=== PATIENT | male | born 1990 | race Caucasian/White ===

== ENCOUNTER 2023-10-31 13:15 | Emergency (ER) | payer OTHER ==
--- NOTE | 2023-10-31 13:39 | ED Physician Documentation ---
PD HPI ABD PAIN - Stated complaint Stated Complaint: ABD PX - Chief complaint Chief Complaint: Abd Pain - Additional information Additional information: 32-year-old male with no pertinent past medical history presents emergency department for lower abdominal pain. Patient originally told triage nurse that it was his left lower quadrant but for myself he says it is actually right in the bladder suprapubic middle lower abdomen region. Patient denies any fevers or chills he says that the pain comes and goes in waves and he says that his urine stream has significantly diminished over the last couple days. No CVA tenderness. No fevers at home, mild chills. Never experienced anything like this before. No emesis, mild nausea. PD PAST MEDICAL HISTORY - Past Medical History Past Medical History: No - Past Surgical History Past Surgical History: No - Present Medications Home Medications: Ambulatory Orders Medication Instructions Recorded Confirmed Ciprofloxacin [Cipro] 500 mg PO Q12H 14 Days #54 tablet 10/31/23 metroNIDAZOLE [Flagyl] 500 mg PO TID 14 Days #41 tablet 10/31/23 oxyCODONE [Roxicodone] 5 mg PO Q4-6H PRN #15 tablet 10/31/23 - Allergies Allergies/Adverse Reactions: Allergies Allergy/AdvReac Type Severity Reaction Status Date / Time Sulfa (Sulfonamide Allergy Hives Verified 10/31/23 13:26 Antibiotics) - Social History Does the pt smoke?: Yes Smoking Status: Current every day smoker Does the pt drink ETOH?: No PD ED PE NORMAL - Vitals Vital signs reviewed: Yes - General General: Alert and oriented X 3, No acute distress, Well developed/nourished - HEENT HEENT: Atraumatic - Cardiac Cardiac: RRR, No murmur, No gallop, Strong equal pulses - Respiratory Respiratory: No respiratory distress, Clear bilaterally - Abdomen Abdomen: Normal bowel sounds, Soft, Non distended, No organomegaly, Other (suprapubic tenderness) - Back Back: No CVA TTP - Derm Derm: Normal color, Warm and dry, No rash - Neuro Neuro: Alert and oriented X 3 - Psych Psych: Normal mood, Normal affect Results - Vitals Vitals: Vital Signs - 24 hr 10/31/23 10/31/23 10/31/23 13:18 13:25 13:42 Temperature 36 C L 36.5 C Heart Rate 93 93 88 Respiratory 16 16 18 Rate Blood Pressure 137/87 H 137/87 H 158/93 H O2 Saturation 98 98 97 10/31/23 10/31/23 15:25 17:00 Temperature 36.5 C Heart Rate 77 82 Respiratory 16 16 Rate Blood Pressure 120/71 132/79 H O2 Saturation 96 96 Oxygen O2 Source Room air - Labs Labs: Laboratory Tests 10/31/23 10/31/23 10/31/23 13:06 15:21 15:21 WBC 14.9 H RBC 5.01 Hgb 15.4 Hct 44.5 MCV 88.8 MCH 30.7 MCHC 34.6 RDW 11.8 L Plt Count 229 MPV 9.3 Neut # (Auto) 11.4 H Lymph # (Auto) 2.0 [place] # (Auto) 1.2 H Eos # (Auto) 0.2 Baso # (Auto) 0.0 Absolute Nucleated RBC 0.00 Nucleated RBC % 0.0 Sodium 135 Potassium 4.4 Chloride 102 Carbon Dioxide 28 Anion Gap 5.0 L BUN 19 Creatinine 1.1 Estimated GFR (MDRD) 78 L Glucose 94 Calcium 9.7 Magnesium 2.1 Total Bilirubin 0.7 AST 18 ALT 49 Alkaline Phosphatase 69 Total Protein 7.2 Albumin 4.1 Globulin 3.1 Albumin/Globulin Ratio 1.3 Lipase < 10 L Urine Color YELLOW Urine Clarity CLEAR Urine pH 6.5 Ur Specific [place] 1.020 Urine Protein NEGATIVE Urine Glucose (UA) NEGATIVE Urine Ketones NEGATIVE Urine Occult Blood NEGATIVE Urine Nitrite NEGATIVE Urine Bilirubin NEGATIVE Urine Urobilinogen 0.2 (NORMAL) Ur Leukocyte Esterase NEGATIVE Ur Microscopic Review NOT INDICATED Urine Culture Comments NOT INDICATED - Rads (name of study) CT abd pelvis w/con Relevant Findings:: Final report received, EMP independent interpretation of test (sigmoid wall abscess 1.8 cm) PD Medical Decision Making - ED course ED course: 32-year-old male presents emergency department for suprapubic pain and tenderness. Differentials include but are not limited to UTI, renal calculi, bladder mass, urinary retention. CT abdomen was complete for further evaluation with contrast for further evaluation, consider doing CT KUB but no hematuria. CT revealed sigmoid colon wall thickening with most likely a sigmoid wall abscess measuring about 1.8 cm. Labs are complete he does have leukocytosis, 14.9 elevated neutrophils at 11.4 and no significant electrolyte abnormalities and unremarkable urinalysis This is most likely due to diverticulitis. Patient also reports he has a family history of diverticulitis. I spoke with on-call surgeon Dr. Mckeon discussed patient findings with her and she suggested starting patient on oral antibiotics and doing a trial outpatient first before admission. Given that patient has been afebrile and hemodynamically stable and patient overall appears well I feel comfortable with this plan at this point in time. Patient was started on Flagyl and ciprofloxacin here in the emergency department and a prescription of Flagyl, ciprofloxacin, narcotics was sent to his preferred pharmacy. I am prescribing a short course of short-acting opioid pain medication for this patient. I have reviewed the patients BRONC BUSTER and no concerning findings were noted. I have discussed that the opioids are for short term therapy only, and will not be refilled from the ED. Patient was told to follow-up with surgery clinic outpatient in 1 week he was given very strict return precautions him and his understand the strict return precautions and patient feels safe to discharge at this point in time. Departure - Departure Disposition: 01 Home, Self Care Clinical Impression: Diverticulitis, Colonic diverticular abscess Instructions: ED Diverticulitis Follow-Up: [facility] [Provider Group] Prescriptions: Ciprofloxacin [Cipro] 500 mg PO Q12H 14 Days #54 tablet metroNIDAZOLE [Flagyl] 500 mg PO TID 14 Days #41 tablet oxyCODONE [Roxicodone] 5 mg PO Q4-6H PRN #15 tablet PRN Reason: Pain >8 Comments: Thank you for trusting us with your care we have found that you have a small abscess on your sigmoid colon. This is most likely due to diverticulitis. We have started you on an antibiotic called Flagyl and ciprofloxacin. I have sent both of these antibiotics as well [facility] [place]. See the attached paperwork for diverticulitis diet suggestions I would also try to stick to a clear liquid diet for the next 24 to 48 hours to help with your recovery. As we discussed please have a very low threshold to come back to the emergency department if after 48 hours of antibiotics if no improvement. You will need to follow-up with our surgeons in 1 week in the clinic. Their phone number is [phone]. As we discussed please have a very low threshold to come back to the emergency department if you are having any worsening symptoms in any way shape or form. I am prescribing a short course of narcotic pain medication for you. These are potentially dangerous and addictive medications that should be used carefully. These medications may constipate you. Take an [id number] stool softener (docusate) twice daily with plenty of water while taking these medications. If you go 24 hours without a bowel movement, take [id number] miralax, per package instructions. Do not drink or drive while taking these medications. If you received narcotic or sedating medications while in the emergency department, do not drive for 24 hours. Store this medication in a safe, secure place and out of reach of children. It is a violation of federal law to give or sell this medication to another person or to use in a manner other than prescribed. The ED will not refill narcotic prescriptions, including prescriptions lost or stolen. To dispose of unwanted medications: 1. [facility] at [address] in [place] has a medication drop box. They accept prescription medications (in pill form) Sunday through Sunday 9:00 a.m. to 5:00 p.m. 2. The [facility] [employer] accepts prescription medications (in pill form only) for disposal year round. Call for more information. 3. Contact the [facility] for the next [employer] sponsored prescription drug collection event. , [phone], or [phone]; Note that many narcotic pain relievers also contain Tylenol/acetaminophen. Please ensure that your total dose of acetaminophen from all sources does not exceed 3 g (3000 mg) per day. TECHNIQUE: After the administration of intravenous contrast, a CT scan of the abdomen and pelvis was performed. Images were recorded and evaluated at appropriate window settings. Reformats: coronal and sagittal. For radiation dose reduction, the following was used: automated exposure control, adjustment of mA and/or kV according to patient size. COMPARISON: None. FINDINGS: Image quality: Diagnostic. Lower chest: Unremarkable. Liver: No solid mass. Gallbladder and biliary tree: No radiopaque stones or wall thickening. No biliary dilation. Spleen: No splenomegaly. Pancreas: No pancreatic ductal dilation. Adrenals: No adrenal nodule. Kidneys and ureters: No hydronephrosis. No renal cystic lesion which requires follow up. No solid mass. Stomach, bowel and peritoneum: There is significant inflammatory change involving the sigmoid with a early abdominal wall/subjacent abscess developing which measures approximately 1.8 cm in diameter. It may potentially be within the wall of the sigmoid. There is impressive edematous change in this portion of the sigmoid. There is inflammatory change in the adjacent fat. Lymph nodes: No central or retroperitoneal adenopathy. Vessels: No infrarenal aortic aneurysm. PELVIS Reproductive organs: Unremarkable. Bladder: No abnormal wall thickening, accounting for underdistention. Pelvic lymph nodes: No pelvic adenopathy by size criteria. Bones: No aggressive osseous abnormality. Other: Small fat-containing left inguinal hernia.. IMPRESSION: Abnormal segment of sigmoid colon with significant wall thickening and edematous change and either a sigmoid wall abscess or developing abscess in the immediate subjacent fat measuring 1.8 cm. This can potentially represent acute diverticulitis in a 32-year-old. Additionally, consider inflammatory versus infectious colitis. Comment: Consider direct visualization with colonoscopy after acute symptoms resolve to exclude inflammatory bowel disease. Forms: PCP List Discharge Date/Time: 10/31/23 17:49
[2023-10-31 13:42] LABS: BILIRUBIN,URINE NEGATIVE (NEGATIVE); GLUCOSE, URINE (UA) NEGATIVE (NEGATIVE); KETONES,URINE (UA) NEGATIVE (NEGATIVE); LEUKOCYTE ESTERASE, URINE NEGATIVE (NEGATIVE); NITRITE,URINE NEGATIVE (NEGATIVE); OCCULT BLOOD,URINE NEGATIVE (NEGATIVE); PH,URINE 6.5 PH (5.0-7.5); PROTEIN,URINE NEGATIVE (NEGATIVE); UROBILINOGEN,URINE 0.2 (NORMAL) E.U./dL (NORMAL)
[2023-10-31 13:52] LABS: CLARITY,URINE CLEAR (CLEAR)
[2023-10-31] MEDS: HYDROmorphone 0.5 MG/0.5 ML SYRINGE IVP STA ×2 (13:58→17:26)
[2023-10-31] MEDS: KETOROLAC 30 MG/ML VIAL IVP STA (13:59)
[2023-10-31 15:28] LABS: BASOPHILS % (AUTO) 0.2 %; EOSINOPHILS # (AUTO) 0.2 10^3/uL (0.0-0.7); EOSINOPHILS % (AUTO) 1.1 %; HCT - HEMATOCRIT 44.5 % (42.0-52.0); HGB - HEMOGLOBIN 15.4 g/dL (14.0-18.0); LYMPHOCYTES % (AUTO) 13.6 %; MEAN CORPUSCULAR HEMOGLOBIN 30.7 pg (27.0-31.0); MEAN CORPUSCULAR HGB CONC 34.6 g/dL (32.0-36.0); MEAN CORPUSCULAR VOLUME 88.8 fL (80.0-94.0); MEAN PLATELET VOLUME 9.3 fL (7.4-11.4); MONOCYTES # (AUTO) 1.2 10^3/uL (0.0-1.0); MONOCYTES % (AUTO) 7.9 %; NEUTROPHILS # (AUTO) 11.4 10^3/uL (1.5-6.6); NEUTROPHILS % (AUTO) 76.9 %; PLT - PLATELET COUNT 229 10^3/uL (130-450); RED BLOOD COUNT 5.01 10^6/uL (4.70-6.10); RED CELL DISTRIBUTION WIDTH 11.8 % (12.0-15.0); WHITE BLOOD COUNT 14.9 x10^3/uL (4.8-10.8)
[2023-10-31 15:39] VITALS: O2SAT 96
[2023-10-31 15:50] LABS: ALBUMIN 4.1 g/dL (3.2-5.5); ALBUMIN/GLOBULIN RATIO 1.3 (1.0-2.2); ALKALINE PHOSPHATASE 69 IU/L (42-121); ALT ALANINE AMINOTRANSFERASE 49 IU/L (10-60); AST ASPARTATE AMINOTRANSFERASE 18 IU/L (10-42); BILIRUBIN,TOTAL 0.7 mg/dL (0.2-1.0); BUN - BLOOD UREA NITROGEN 19 mg/dL (6-20); CALCIUM 9.7 mg/dL (8.5-10.3); CARBON DIOXIDE - CO2 28 mmol/L (21-32); CHLORIDE 102 mmol/L (101-111); CREATININE 1.1 mg/dL (0.6-1.3); GFR - MDRD 78 (>89); GLUCOSE 94 mg/dL (74-104); MAGNESIUM 2.1 mg/dL (1.7-2.3); POTASSIUM 4.4 mmol/L (3.5-4.5); SODIUM 135 mmol/L (135-145); TOTAL PROTEIN 7.2 g/dL (6.4-8.9)
[2023-10-31 15:52] LABS: LIPASE < 10 U/L (11-82)
[2023-10-31] MEDS ORDERED: iohexoL-300 100 ML VIAL ONE (15:54)
--- NOTE | 2023-10-31 16:37 | CT Report ---
PROCEDURE: Abdomen/Pelvis W INDICATIONS: RUQ pain CONTRAST: See chart 100 ml TECHNIQUE: After the administration of intravenous contrast, a CT scan of the abdomen and pelvis was performed. Images were recorded and evaluated at appropriate window settings. Reformats: coronal and sagittal. F or radiation dose reduction, the following was used: automated exposure control, adjustment of mA and /or kV according to patient size. COMPARISON: None. FINDINGS: Image quality: Diagnostic. Lower chest: Unremarkable. Liver: No solid mass. Gallbladder and biliary tree: No radiopaque stones or wall thickening. No biliary dilation. Spleen: No splenomegaly. Pancreas: No pancreatic ductal dilation. Adrenals: No adrenal nodule. Kidneys and ureters: No hydronephrosis. No renal cystic lesion which requires follow up. No solid mas s. Stomach, bowel and peritoneum: There is significant inflammatory change involving the sigmoid with a early abdominal wall/subjacent abscess developing which measures approximately 1.8 cm in diameter. It may potentially be within the wall of the sigmoid. There is impressive edematous change in this port ion of the sigmoid. There is inflammatory change in the adjacent fat. Lymph nodes: No central or retroperitoneal adenopathy. Vessels: No infrarenal aortic aneurysm. PELVIS Reproductive organs: Unremarkable. Bladder: No abnormal wall thickening, accounting for underdistention. Pelvic lymph nodes: No pelvic adenopathy by size criteria. Bones: No aggressive osseous abnormality. Other: Small fat-containing left inguinal hernia.. IMPRESSION: Abnormal segment of sigmoid colon with significant wall thickening and edematous change and either a sigmoid wall abscess or developing abscess in the immediate subjacent fat measuring 1.8 cm. This can potentially represent acute diverticulitis in a 32-year-old. Additionally, consider inflamma tory versus infectious colitis. Comment: Consider direct visualization with colonoscopy after acute symptoms resolve to exclude infla mmatory bowel disease. Reviewed by: Neto Boggs MD on 10/31/2023 4:36 PM PDT Approved by: Neto Boggs MD on 10/31/2023 4:36 PM PDT Station ID: [id number]
[2023-10-31] MEDS: SODIUM CHLORIDE 0.9% 1,000 ML IV ONE (16:52)
[2023-10-31 17:06] VITALS: BP 132/79
[2023-10-31] MEDS: CIPROFLOXACIN 250 MG TABLET PO STA (17:26)
[2023-10-31] MEDS: metroNIDAZOLE 250 MG TABLET PO STA (17:26)
[2023-10-31] MEDS: oxyCODONE 5 MG TABLET PO STA (17:26)
[2023-10-31] MEDS: iohexoL-300 100 ML VIAL IVP ONE (17:37)
== END 2023-10-31 17:49 | disposition home or self-care (01) ==
LOC: ED 13:15
DX: K57.80 Diverticulitis of intestine, part unspecified, with perforation and abscess without bleeding (principal); F17.200 Nicotine dependence, unspecified, uncomplicated; Z88.2 Allergy status to sulfonamides; Z83.79 Family history of other diseases of the digestive system
CPT/HCPCS: 36415; 74177; 80053; 81003; 83690; 83735; 85025; 96374; 96375; 96376; 99284; A9270; J1170; Q9967; 81001; 87086

== ENCOUNTER 2023-11-01 06:57 | Observation (INO) | payer OTHER ==
--- NOTE | 2023-11-01 07:22 | ED Physician Documentation ---
History of Present Illness - Stated complaint Stated Complaint: ABD PX - Chief complaint Chief Complaint: Abd Pain - History obtained from History obtained from: Patient - Additonal information Additional information: The patient comes to the emergency department chief complaint of worsening low abdominal pain after being seen in the emergency department yesterday for the same. He states the pain overall is been going on for about 3 days including today, but that he finally went to the emergency department yesterday because she is getting worse and worse. He had a full workup including labs, which showed a white blood cell count of roughly 15, and a CT scan of the abdomen pelvis which showed inflammation and an early or developing abscess in his low abdomen. Surgery was consulted and felt that given the findings, the patient could have a trial of oral antibiotics. The patient was given Cipro and Flagyl prescriptions as well as IV doses of antibiotics in the emergency department yesterday. He states he has not taken his oral antibiotics yet, as he was not discharged from the emergency department until later yesterday. He states that the Dilaudid he was given in the ED kept him comfortable until about 2200 at which time he was in enough pain to feel the need to take an oxycodone. He states this was effective for about 3 hours but then the pain began to come back. He states that he waited another hour and at the 4-hour baltazar, he took another oxycodone. He states that this time, it did not do anything and that he is felt like the pain was getting worse since then. He denies nausea. No measured fevers. No chills. No new symptoms otherwise. No history of abdominal surgeries. He is otherwise healthy except for smoking. He states that the pain reaches across both sides of his lower abdomen. No other complaints at this time. PD PAST MEDICAL HISTORY - Past Medical History Past Medical History: No - Past Surgical History Past Surgical History: No - Present Medications Home Medications: Ambulatory Orders Medication Instructions Recorded Confirmed Ciprofloxacin [Cipro] 500 mg PO Q12H 14 Days #54 tablet 10/31/23 11/01/23 metroNIDAZOLE [Flagyl] 500 mg PO TID 14 Days #41 tablet 10/31/23 11/01/23 oxyCODONE [Roxicodone] 5 mg PO Q4-6H PRN #15 tablet 10/31/23 11/01/23 - Allergies Allergies/Adverse Reactions: Allergies Allergy/AdvReac Type Severity Reaction Status Date / Time Sulfa (Sulfonamide Allergy Hives Verified 11/01/23 07:00 Antibiotics) - Social History Does the pt smoke?: Yes Smoking Status: Current every day smoker Does the pt drink ETOH?: No Does the pt have substance abuse?: No PD ED PE NORMAL - Vitals Vital signs reviewed: Yes - General General: Alert and oriented X 3, No acute distress, Well developed/nourished, Other (The patient appears moderately uncomfortable, holding onto his low abdomen, but otherwise in no apparent distress.) - HEENT HEENT: Atraumatic, PERRL, EOMI, Moist mucous membranes - Neck Neck: Supple, no meningeal sign - Cardiac Cardiac: RRR, No murmur - Respiratory Respiratory: No respiratory distress, Clear bilaterally - Abdomen Abdomen: Soft, Non distended, Other (Marked tenderness across bilateral lower quadrants and suprapubic region. No rebound or guarding. 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, Normal speech, Other (Grossly intact) - Psych Psych: Normal mood, Normal affect Results - Vitals Vitals: Vital Signs - 24 hr 11/01/23 11/01/23 07:00 08:00 Temperature 36.2 C L Heart Rate 87 82 Respiratory 16 16 Rate Blood Pressure 151/86 H 138/85 H O2 Saturation 96 95 Oxygen O2 Source Room air - Labs Labs: Laboratory Tests 11/01/23 11/01/23 07:21 07:21 WBC 15.0 H RBC 5.13 Hgb 15.7 Hct 45.5 MCV 88.7 MCH 30.6 MCHC 34.5 RDW 11.8 L Plt Count 233 MPV 9.4 Neut # (Auto) 11.5 H Lymph # (Auto) 1.9 [place] # (Auto) 1.4 H Eos # (Auto) 0.1 Baso # (Auto) 0.0 Absolute Nucleated RBC 0.00 Nucleated RBC % 0.0 Sodium 134 L Potassium 4.1 Chloride 102 Carbon Dioxide 27 Anion Gap 5.0 L BUN 12 Creatinine 1.1 Estimated GFR (MDRD) 78 L Glucose 97 Calcium 9.6 Total Bilirubin 1.3 H AST 16 ALT 41 Alkaline Phosphatase 66 Total Protein 7.4 Albumin 4.2 Globulin 3.2 Albumin/Globulin Ratio 1.3 Lipase < 10 L - Rads (name of study) CT abd pelvis Relevant Findings:: Final report received, See rad report (Diverticulitis with abscess, somewhat worsened.) PD Medical Decision Making - ED course Complexity details: reviewed old records, reviewed results, re-evaluated patient, considered differential, d/w patient ED course: I reviewed the patient's records from yesterday and given his worsening pain and his findings on exam, I felt he should have repeat workup to determine whether things were getting worse. Patient was treated symptomatically with IV fluids, Toradol, and Dilaudid, and as he had not yet taken his antibiotics this morning, he was given doses of both his antibiotics here in the emergency department. The CBC showed a roughly unchanged WBC count. CT abd/pelvis showed a somewhat worsened diverticulitis and abscess. I discussed the case with Dr. Nicole, who was delinquency prevention officer for surgery, and he did come and see the patient in the ED and agreed to admit him to his service. Departure - Departure Disposition: ED Place in Observation Clinical Impression: Diverticulitis, Colonic diverticular abscess Condition: Serious Discharge Date/Time: 11/01/23 11:15
[2023-11-01] MEDS ORDERED: iohexoL-300 100 ML VIAL ONE (07:25)
[2023-11-01] MEDS: SODIUM CHLORIDE 0.9% 1,000 ML IV STA (07:26)
[2023-11-01] MEDS: HYDROmorphone 1 MG/ML CARPUJECT IVP STA (07:32)
[2023-11-01] MEDS: KETOROLAC 30 MG/ML VIAL IVP STA (07:32)
[2023-11-01] MEDS: CIPROFLOXACIN 400 MG/200 ML 400 MG/200 ML BAG IV STA (07:33)
[2023-11-01 07:41] LABS: BASOPHILS % (AUTO) 0.2 %; EOSINOPHILS # (AUTO) 0.1 10^3/uL (0.0-0.7); EOSINOPHILS % (AUTO) 0.5 %; HCT - HEMATOCRIT 45.5 % (42.0-52.0); HGB - HEMOGLOBIN 15.7 g/dL (14.0-18.0); LYMPHOCYTES # (AUTO) 1.9 10^3/uL (1.5-3.5); LYMPHOCYTES % (AUTO) 12.6 %; MEAN CORPUSCULAR HEMOGLOBIN 30.6 pg (27.0-31.0); MEAN CORPUSCULAR HGB CONC 34.5 g/dL (32.0-36.0); MEAN CORPUSCULAR VOLUME 88.7 fL (80.0-94.0); MEAN PLATELET VOLUME 9.4 fL (7.4-11.4); MONOCYTES # (AUTO) 1.4 10^3/uL (0.0-1.0); MONOCYTES % (AUTO) 9.6 %; NEUTROPHILS # (AUTO) 11.5 10^3/uL (1.5-6.6); NEUTROPHILS % (AUTO) 76.8 %; PLT - PLATELET COUNT 233 10^3/uL (130-450); RED BLOOD COUNT 5.13 10^6/uL (4.70-6.10); RED CELL DISTRIBUTION WIDTH 11.8 % (12.0-15.0)
[2023-11-01] MEDS: metroNIDAZOLE 500 MG/100 ML 500 MG/100 ML BAG IV ONE (07:44)
[2023-11-01 07:50] LABS: ALBUMIN 4.2 g/dL (3.2-5.5); ALBUMIN/GLOBULIN RATIO 1.3 (1.0-2.2); ALKALINE PHOSPHATASE 66 IU/L (42-121); ALT ALANINE AMINOTRANSFERASE 41 IU/L (10-60); AST ASPARTATE AMINOTRANSFERASE 16 IU/L (10-42); BILIRUBIN,TOTAL 1.3 mg/dL (0.2-1.0); BUN - BLOOD UREA NITROGEN 12 mg/dL (6-20); CALCIUM 9.6 mg/dL (8.5-10.3); CARBON DIOXIDE - CO2 27 mmol/L (21-32); CHLORIDE 102 mmol/L (101-111); CREATININE 1.1 mg/dL (0.6-1.3); GFR - MDRD 78 (>89); GLUCOSE 97 mg/dL (74-104); POTASSIUM 4.1 mmol/L (3.5-4.5); SODIUM 134 mmol/L (135-145); TOTAL PROTEIN 7.4 g/dL (6.4-8.9)
[2023-11-01 07:51] LABS: LIPASE < 10 U/L (11-82)
[2023-11-01] MEDS: iohexoL-300 100 ML VIAL IVP ONE (07:57)
--- NOTE | 2023-11-01 08:05 | CT Report ---
PROCEDURE: Abdomen/Pelvis W INDICATIONS: diverticulitis, abscess, worse pain/tend today CONTRAST: iohex 300 100ml TECHNIQUE: After the administration of intravenous contrast, a CT scan of the abdomen and pelvis was performed. Images were recorded and evaluated at appropriate window settings. Reformats: coronal and sagittal. F or radiation dose reduction, the following was used: automated exposure control, adjustment of mA and /or kV according to patient size. COMPARISON: 10/31/2023. FINDINGS: Image quality: Diagnostic. Lower chest: Unremarkable. Liver: No solid mass. Gallbladder and biliary tree: No radiopaque stones or wall thickening. No biliary dilation. Spleen: No splenomegaly. Pancreas: No pancreatic ductal dilation. Adrenals: No adrenal nodule. Kidneys and ureters: No hydronephrosis. No renal cystic lesion which requires follow up. No solid mas s. Stomach, bowel and peritoneum: Again noted is an abnormal segment of sigmoid colon with significant w all thickening and edematous change. The associated wall abscess has increased in size. On previous i mage 131 it measured 1.6 x 1.8 cm. On current image 136/2 it measures 2.2 x 2.8 cm. It is currently n ot a drainable abscess. No free air. No free fluid. Inflammatory change in the fat surrounding the ab normal segment of sigmoid. Lymph nodes: No central or retroperitoneal adenopathy. Vessels: No infrarenal aortic aneurysm. PELVIS Reproductive organs: Unremarkable. Bladder: No abnormal wall thickening, accounting for underdistention. Pelvic lymph nodes: No pelvic adenopathy by size criteria. Bones: No aggressive osseous abnormality. Other: No significant ventral or inguinal hernia. IMPRESSION: As present yesterday, there is an abnormal segment of sigmoid colon with significant wall thickening and edematous change. There is a wall abscess associated with this abnormal segment which has increas ed in size. It is not drainable. There is no free air noted. Consider acute diverticulitis versus inflammatory versus infectious colitis. Reviewed by: Neto Boggs MD on 11/01/2023 8:04 AM PDT Approved by: Neto Boggs MD on 11/01/2023 8:04 AM PDT Station ID: [id number]
[2023-11-01] MEDS ORDERED: NICOTINE 14 MG PATCH TOP PRN (10:00)
[2023-11-01] MEDS ORDERED: ONDANSETRON 4 MG/2 ML VIAL IVP PRN (10:00)
--- NOTE | 2023-11-01 10:21 | HISTORY & PHYSICAL EXAMINATION ---
Chief Complaint - Chief Complaint Chief Complaint: Lower abdominal pain History of Present Illness - Admitted From Admitted From:: ED - History Obtained From History obtained from: Patient Exam Limitations: None - History of Present Illness HPI Comment/Other: Lili is a 32 year old male who developed lower abdominal sharp, non-radiating pain on Sunday night. It was sudden in onset. He was constipated prior to this and remains constipated. He denies fevers, chills, sweats. He was seen in the ED last night and found to have diverticulitis of the sigmoid colon with pericolonic swelling and a small abscess adjacent to the sigmoid wall. he preferred out-patient management and was discharged from the ED late last evening. He was given a single dose of IV antibiotics in the ED but did not take his oral medications this morning. He awakened with worsening abdominal pain and returned to the ED where a second CT scan identified similar findings as yesterday's exam with perhaps some increase in the size of the zhou-colonic abscess. Lili admits to constipation but has never had this type of discomfort in the past. He tells me his grandmother had surgery for perforated diverticulitis. 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 he smokes a pack of cigarettes every two days. He has not used alcohol recently. Meds/Allgy - Home Medications Home Medications: Ambulatory Orders Medication Instructions Recorded Confirmed Ciprofloxacin [Cipro] 500 mg PO Q12H 14 Days #54 tablet 10/31/23 11/01/23 metroNIDAZOLE [Flagyl] 500 mg PO TID 14 Days #41 tablet 10/31/23 11/01/23 oxyCODONE [Roxicodone] 5 mg PO Q4-6H PRN #15 tablet 10/31/23 11/01/23 - Allergies Allergies/Adverse Reactions: Allergies Allergy/AdvReac Type Severity Reaction Status Date / Time Sulfa (Sulfonamide Allergy Hives Verified 11/01/23 07:00 Antibiotics) Review of Systems - Gastrointestinal Gastrointestinal: reports: Abdominal pain, Constipation Exam - Vital Signs Vital Signs: Vital Signs x48h Temp Pulse Resp BP Pulse Ox 11/01/23 07:00 97.2 F L 87 16 151/86 H 96 - Physical Exam General Appearance: positive: No acute distress, Alert Eyes Bilateral: positive: Normal inspection, PERRL, EOMI ENT: positive: ENT inspection nml, Pharynx nml, No signs of dehydration Neck: positive: Nml inspection, Thyroid nml, No JVD, Trachea midline Respiratory: positive: Chest non-tender, No respiratory distress, Breath sounds nml Cardiovascular: positive: Regular rate & rhythm, No murmur Peripheral Pulses: positive: 2+ Abdomen: positive: Nml bowel sounds, No distention, Tenderness (Tenderness in the hypogastric region without peritoneal irritation) Skin: positive: Color nml, No rash, Warm Extremities: positive: Non-tender, Full ROM, Nml appearance Neurologic/Psychiatric: positive: Oriented x3 Conclusion/Plan - Lab Results Fish Bones: 11/01/23 07:21 11/01/23 07:21 - Diagnostic Imaging Results Diagnostic Imaging Results Comments: CT scan abdomen and pelvis yesterday and today both reviewed by me. Sigmoid diverticulitis with small pericolonic abscess not amendable to IR drainage. - Other Other Results/Comments: Assessment: Sigmoid diverticulitis with associated pericolonic abscess not amenable to IR drainage. No evidence of sepsis or peritonitis. Plan: 1) Admit for IV antibiotics and CHILD CARE ATTENDANT Dilaudid 2) IV Zosyn 3) Clear liquid diet 4) VTEP 5) Nicotine patch as needed 6) Daily labs 7) If he responds to the above management, I expect discharge in 2-3 days. Cristhian Nicole MD, [facility] General Surgery Service
--- NOTE | 2023-11-01 10:33 | PHARMACY PROGRESS NOTE ---
- Best Possible Medication History Admit Date and Time: 11/01/23 1000 Processed by: Nursing Medications reviewed in ED?: Yes Medication History completed: Yes Patient Interview: Completed Secondary Source(s): Insurance records As the person ultimately responsible for medication therapy, providers are able to order a medication from an existing home medication list in [facility] via the "Reconcile Routine" prior to Confirmation of that medication by support services specialist. Such practice is discouraged except when the physician, in their clinical judgment, deems that a medical need exists for a medication without regard to previous use.
[2023-11-01] MEDS: PIPERACILLIN/TAZOBACTAM 3.375 GM in SODIUM CHLORIDE 0.9% MINIBAG 100 ML IV SCH (11:22)
[2023-11-01] MEDS: LACTATED RINGERS 1,000 ML IV SCH (11:22)
[2023-11-01] MEDS: KETOROLAC 30 MG/ML VIAL IVP SCH (11:22)
[2023-11-01] MEDS: SODIUM CHLORIDE FLUSH 0.9% 10 ML SYRINGE IVP PRN (11:23)
[2023-11-01] MEDS: HYDROmorphone PCA 20MG/100ML IV PRN (11:49)
[2023-11-01] MEDS: SODIUM CHLORIDE FLUSH 0.9% 10 ML SYRINGE IVP SCH (16:41)
[2023-11-01] MEDS: HEPARIN 5,000 UNIT/ML VIAL SUBQ SCH (21:38)
[2023-11-02 05:34] LABS: BASOPHILS % (AUTO) 0.3 %; EOSINOPHILS # (AUTO) 0.1 10^3/uL (0.0-0.7); EOSINOPHILS % (AUTO) 1.4 %; HCT - HEMATOCRIT 38.7 % (42.0-52.0); HGB - HEMOGLOBIN 13.4 g/dL (14.0-18.0); LYMPHOCYTES # (AUTO) 2.1 10^3/uL (1.5-3.5); LYMPHOCYTES % (AUTO) 21.7 %; MEAN CORPUSCULAR HEMOGLOBIN 31.1 pg (27.0-31.0); MEAN CORPUSCULAR HGB CONC 34.6 g/dL (32.0-36.0); MEAN CORPUSCULAR VOLUME 89.8 fL (80.0-94.0); MEAN PLATELET VOLUME 9.3 fL (7.4-11.4); MONOCYTES # (AUTO) 1.1 10^3/uL (0.0-1.0); MONOCYTES % (AUTO) 10.8 %; NEUTROPHILS # (AUTO) 6.4 10^3/uL (1.5-6.6); NEUTROPHILS % (AUTO) 65.5 %; PLT - PLATELET COUNT 206 10^3/uL (130-450); RED BLOOD COUNT 4.31 10^6/uL (4.70-6.10); RED CELL DISTRIBUTION WIDTH 11.9 % (12.0-15.0); WHITE BLOOD COUNT 9.8 x10^3/uL (4.8-10.8)
[2023-11-02 05:53] LABS: CALCIUM 9.1 mg/dL (8.5-10.3); CREATININE 1.1 mg/dL (0.6-1.3); POTASSIUM 4.1 mmol/L (3.5-4.5)
--- NOTE | 2023-11-02 07:27 | PROVIDER PROGRESS NOTE ---
Subjective - General Admit Date: 11/01/23 - Other Other Information/Narrative: Patient's abdominal discomfort is less. He is ambulatory, tolerating a clear liquid diet and passing flatus. He would like an increase in his TORCH OPERATOR dose as the 0.2 mg does not last long enough. Objective - Patient Data Vital Signs: Vital Signs x48h Temp Pulse Resp BP Pulse Ox 11/02/23 06:59 18 11/02/23 04:48 97.7 F 59 L 18 114/73 96 11/01/23 23:48 97.5 F L 64 18 135/77 H 97 Weight: Weight 10/31/23 11/01/23 11/02/23 23:59 23:59 23:59 Weight (kg) 117.934 kg Intake & Output: Intake and Output Totals x24h 10/31/23 11/01/23 11/02/23 23:59 23:59 23:59 Intake Total 4350 100 Balance 4350 100 - Lab Results Lab Results: 11/02/23 05:06 11/02/23 05:06 Other Lab Results: Lab Results x24hrs 11/02/23 11/02/23 11/01/23 Range/Units 05:06 05:06 07:21 WBC 9.8 (4.8-10.8) x10^3/uL RBC 4.31 L (4.70-6.10) 10^6/uL Hgb 13.4 L (14.0-18.0) g/dL Hct 38.7 L (42.0-52.0) % MCV 89.8 (80.0-94.0) fL MCH 31.1 H (27.0-31.0) pg MCHC 34.6 (32.0-36.0) g/dL RDW 11.9 L (12.0-15.0) % Plt Count 206 (130-450) 10^3/uL MPV 9.3 (7.4-11.4) fL Neut # (Auto) 6.4 (1.5-6.6) 10^3/uL Lymph # (Auto) 2.1 (1.5-3.5) 10^3/uL Dyer # (Auto) 1.1 H (0.0-1.0) 10^3/uL Eos # (Auto) 0.1 (0.0-0.7) 10^3/uL Baso # (Auto) 0.0 (0.0-0.1) 10^3/uL Absolute Nucleated RBC 0.00 x10^3/uL Nucleated RBC % 0.0 /100WBC Sodium 137 134 L (135-145) mmol/L Potassium 4.1 4.1 (3.5-4.5) mmol/L Chloride 104 102 (101-111) mmol/L Carbon Dioxide 29 27 (21-32) mmol/L Anion Gap 4.0 L 5.0 L (6-13) BUN 11 12 (6-20) mg/dL Creatinine 1.1 1.1 (0.6-1.3) mg/dL Estimated GFR (MDRD) 78 L 78 L (>89) Glucose 90 97 (74-104) mg/dL Calcium 9.1 9.6 (8.5-10.3) mg/dL Total Bilirubin 1.3 H (0.2-1.0) mg/dL AST 16 (10-42) IU/L ALT 41 (10-60) IU/L Alkaline Phosphatase 66 (42-121) IU/L Total Protein 7.4 (6.4-8.9) g/dL Albumin 4.2 (3.2-5.5) g/dL Globulin 3.2 (2.1-4.2) g/dL Albumin/Globulin Ratio 1.3 (1.0-2.2) Lipase < 10 L (11-82) U/L 11/01/23 Range/Units 07:21 WBC 15.0 H (4.8-10.8) x10^3/uL RBC 5.13 (4.70-6.10) 10^6/uL Hgb 15.7 (14.0-18.0) g/dL Hct 45.5 (42.0-52.0) % MCV 88.7 (80.0-94.0) fL MCH 30.6 (27.0-31.0) pg MCHC 34.5 (32.0-36.0) g/dL RDW 11.8 L (12.0-15.0) % Plt Count 233 (130-450) 10^3/uL MPV 9.4 (7.4-11.4) fL Neut # (Auto) 11.5 H (1.5-6.6) 10^3/uL Lymph # (Auto) 1.9 (1.5-3.5) 10^3/uL Dyer # (Auto) 1.4 H (0.0-1.0) 10^3/uL Eos # (Auto) 0.1 (0.0-0.7) 10^3/uL Baso # (Auto) 0.0 (0.0-0.1) 10^3/uL Absolute Nucleated RBC 0.00 x10^3/uL Nucleated RBC % 0.0 /100WBC Sodium (135-145) mmol/L Potassium (3.5-4.5) mmol/L Chloride (101-111) mmol/L Carbon Dioxide (21-32) mmol/L Anion Gap (6-13) BUN (6-20) mg/dL Creatinine (0.6-1.3) mg/dL Estimated GFR (MDRD) (>89) Glucose (74-104) mg/dL Calcium (8.5-10.3) mg/dL Total Bilirubin (0.2-1.0) mg/dL AST (10-42) IU/L ALT (10-60) IU/L Alkaline Phosphatase (42-121) IU/L Total Protein (6.4-8.9) g/dL Albumin (3.2-5.5) g/dL Globulin (2.1-4.2) g/dL Albumin/Globulin Ratio (1.0-2.2) Lipase (11-82) U/L - Current Medications Current Medications: Current Medications Generic Name Dose Route Start Last Admin Trade Name Freq PRN Reason Stop Dose Admin Heparin Sodium (Porcine) 5,000 unit 11/01/23 21:00 11/01/23 21:38 Heparin 5,000 Unit/Ml Vial SUBQ 5,000 unit BID JAMARI Administration Lactated Ringer's 1,000 mls @ 100 mls/hr 11/01/23 10:00 11/01/23 21:38 Lr IV 100 mls/hr .Q10H JAMARI Administration Piperacillin Sod/Tazobactam 100 mls @ 200 mls/hr 11/01/23 12:00 11/02/23 06:55 Sod 3.375 gm/ Sodium Chloride IV 11/06/23 11:59 200 mls/hr Q6HR JAMARI Administration Ketorolac Tromethamine 30 mg 11/01/23 12:00 11/02/23 06:56 Ketorolac 30 Mg/Ml Vial IVP 11/02/23 12:01 30 mg Q6HR JAMARI Administration Sodium Chloride 10 ml 11/01/23 10:00 11/01/23 11:23 Sodium Chloride Flush 0.9% 10 Ml Syringe IVP 10 ml PRN PRN Administration NEEDED PER PROVIDER ORDERS Sodium Chloride 10 ml 11/01/23 17:00 11/02/23 00:21 Sodium Chloride Flush 0.9% 10 Ml Syringe IVP Not Given 0100,0900,1700 JAMARI - Physical Exam General Appearance: positive: No acute distress, Alert ENT: positive: ENT inspection nml Neck: positive: Nml inspection Respiratory: positive: Chest non-tender, Breath sounds nml Cardiovascular: positive: Regular rate & rhythm Abdomen: positive: Other (Soft, mild tenderness supra-pubic region but improved from yesterday, active BS) Impression/Plan - Problem List Problem List: Assessment: 1) Diverticulitis with small, pericolonic abscess not amenable to IR drainage. Tolerating IV antibiotics and oral clear liquids. Leukocytosis resolved. Tenderness persists but clinically improved. Plan: 1) Continue clear liquid diet 2) Continue to ambulate 3) Increase TORCH OPERATOR from 0.2 to 0.3 mg with 10 min lockout 4) Discontinue IV Ketorolac and start Ibuprofen 600 mg PO TID Cristhian Nicole MD, [facility] General Surgery Service
[2023-11-02] MEDS: HYDROmorphone PCA 20MG/100ML IV PRN (07:39)
--- NOTE | 2023-11-02 18:29 | PROVIDER PROGRESS NOTE ---
Progress Note General Surgery PM Progress Note Patient is progressing well. He is tolerating a clear liquid diet and has passed flatus this afternoon. The slight increase in DIRECTOR E LEARNING dosage has resolved his discomfort. He has ambulated in the hallway. His and children are visiting this evening. Tomorrow I'll discontinue the DIRECTOR E LEARNING and advance his diet. We can start oral narcotics to augment the oral NSAIDs that I started today. Discharge to home might be as early as tomorrow afternoon if he continues to progress. He will require 7-10 days of out-patient antibiotic therapy. Cristhian Nicole MD, [facility] General Surgery Service
[2023-11-02] MEDS: IBUPROFEN 600 MG TABLET PO SCH (18:31)
--- NOTE | 2023-11-03 07:28 | PROVIDER PROGRESS NOTE ---
Progress Note General Surgery Progress Note S: Slept well; Less abdominal discomfort; Passing flatus; Tolerating clear liquids O: VSS, Afeb; Lungs clear; Heart NSR; Abdomen is soft with mild tenderness in the supra-pubic region. No peritoneal signs. Active BS A: Diverticulitis with small pericolonic abscess. Good clinical response to IV Zosyn P: Discontinue HEAD SHIPPER; Start scheduled Tylenol to use with the scheduled Ibuprofen; Oxycodone prn; Advance to full liquid diet; Saline lock IV; Possibly home later today if he tolerates the change in medication and diet. He will need 7 days of out-patient oral antibiotics (Cipro/Flagyl) for which he already has a prescription. Cristhian Nicole MD, FACS General Surgery Service
[2023-11-03] MEDS: oxyCODONE 5 MG TABLET PO PRN (07:46)
[2023-11-03] MEDS: ACETAMINOPHEN 325 MG TABLET PO SCH (09:02)
[2023-11-03 12:35] VITALS: BP 137/89; O2SAT 97
--- NOTE | 2023-11-03 15:52 | PROVIDER PROGRESS NOTE ---
Progress Note General Surgery Progress Note Lili has had an uneventful day. He had a bowel movement and his lower abdominal pain has resolved. His pain is well controlled with oral multi- modality pain control. He already has his oral Cipro/Flagyl prescriptions and a prescription for oxycodone given to him by the ED previously. He is ready for discharge. Cristhian Nicole MD, [facility] General Surgery Service
--- NOTE | 2023-11-03 15:54 | Discharge Plan ---
Discharge Plan Problem Reviewed?: Yes Disposition: Home, Self Care Condition: Good Prescriptions: Acetaminophen [Tylenol] 650 mg PO Q4HR #60 tab Ibuprofen [Motrin] 600 mg PO TIDWM #60 tab Diet: Regular Activity Restrictions: Additional Comments (Avoid strenuous activity for 7 days) Shower Restrictions: No Driving Restrictions: No (Do not drive while taking narcotics) Instruction Topics: Diverticulosis Diverticulitis Assessment: Assessment: Diverticulitis of the sigmoid colon with pericolonic abscess - clinically improved with 48 hours of IV antibiotics. Will advise 7 days or oral Cipro/Flagyl and no strenuous activity for 7 days. 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 Call for help.
--- NOTE | 2023-11-03 16:00 | DISCHARGE SUMMARY ---
Discharge Summary Admit Date: 11/01/23 Discharge Date: 11/03/23 Discharging Provider: Corey Code Status: Attempt Resuscitation Condition at Discharge: Good Discharge Disposition: 01 Home, Self Care - DIAGNOSES Admission Diagnoses: Sigmoid diverticulitis with zhou-colonic abscess Discharge Diagnoses with Status of Each Condition: Sigmoid diverticulitis with zhou-colonic abscess. Clinically improved with bowel rest and 48 hours of IV antibiotics. - HPI History of Present Illness: Lili is a 32 year old male who developed lower abdominal sharp, non-radiating pain on Sunday night. It was sudden in onset. He was constipated prior to this and remains constipated. He denies fevers, chills, sweats. He was seen in the ED last night and found to have diverticulitis of the sigmoid colon with pericolonic swelling and a small abscess adjacent to the sigmoid wall. he preferred out-patient management and was discharged from the ED late last evening. He was given a single dose of IV antibiotics in the ED but did not take his oral medications this morning. He awakened with worsening abdominal pain and returned to the ED where a second CT scan identified similar findings as yesterday's exam with perhaps some increase in the size of the zhou-colonic abscess. Lili admits to constipation but has never had this type of discomfort in the past. He tells me his grandmother had surgery for perforated diverticulitis. 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 he smokes a pack of cigarettes every two days. He has not used alcohol recently. - HOSPITAL COURSE Hospital Course: Uncomplicated. At time of discharge he was ambulatory, tolerating a full liquid diet, he was having normal bowel motions and his pain was under good control with oral medications. - ALLERGIES Allergies/Adverse Reactions: Allergies Allergy/AdvReac Type Severity Reaction Status Date / Time Sulfa (Sulfonamide Allergy Hives Verified 11/01/23 07:00 Antibiotics) - MEDICATIONS Home Medications: Ambulatory Orders Medication Instructions Recorded Confirmed Ciprofloxacin [Cipro] 500 mg PO Q12H 14 Days #54 tablet 10/31/23 11/01/23 metroNIDAZOLE [Flagyl] 500 mg PO TID 14 Days #41 tablet 10/31/23 11/01/23 oxyCODONE [Roxicodone] 5 mg PO Q4-6H PRN #15 tablet 10/31/23 11/01/23 Acetaminophen [Tylenol] 650 mg PO Q4HR #60 tab 11/03/23 Ibuprofen [Motrin] 600 mg PO TIDWM #60 tab 11/03/23 - PHYSICAL EXAM AT DISCHARGE General Appearance: positive: No acute distress, Alert Eyes Bilateral: positive: Normal inspection, PERRL ENT: positive: ENT inspection nml, Pharynx nml Neck: positive: Nml inspection, Trachea midline Respiratory: positive: No respiratory distress, Breath sounds nml Cardiovascular: positive: Regular rate & rhythm, No murmur Peripheral Pulses: positive: 2+ Abdomen: positive: Non-tender, Nml bowel sounds, No distention Skin: positive: Color nml, Warm Extremities: positive: Non-tender, Full ROM Neurologic/Psychiatric: positive: Oriented x3 - LABS Result Diagrams: 11/02/23 05:06 11/02/23 05:06 - DIAGNOSTIC IMAGING Diagnostic Imaging Results: See rad report - QUALITY (Female Hip Fx Only) Was patient sent home on osteoporosis medication?: No - FOLLOW UP Follow Up: 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 - TIME SPENT Time Spent in Discharge (Minutes): 30
== END 2023-11-03 16:15 | disposition home or self-care (01) ==
LOC: EDUNIT# → ED 06:57 → MS2 10:00
PROVIDERS: ADMIT Surgery; ATTEND Surgery
DX: K57.20 Diverticulitis of large intestine with perforation and abscess without bleeding (principal); D72.829 Elevated white blood cell count, unspecified; F17.200 Nicotine dependence, unspecified, uncomplicated; Z88.2 Allergy status to sulfonamides
CPT/HCPCS: 36415; 74177; 80048; 80053; 83690; 85025; 96365; 96366; 96367; 96368; 96372; 96375; 96376; 99284; 99285; A9270; G0378; J1170; J7120; Q9967